=== PATIENT | female | born 1990 | race Two or more races ===

== ENCOUNTER 2023-12-18 00:18 | Inpatient (IN) | payer OTHER ==
[2023-12-18] MEDS: diazePAM 5 MG TABLET PO ONE ×2 (01:42→05:00)
[2023-12-18] MEDS: ONDANSETRON *ODT* 4 MG TABLET SL ONE (01:42)
[2023-12-18] MEDS ORDERED: ONDANSETRON 4 MG/2 ML VIAL ONE ×2 (03:19→07:58)
[2023-12-18] MEDS: morphine CARPU-JECT 2 MG/1 ML DISP.SYRIN IVPUSH ONE ×2 (03:25→05:19)
[2023-12-18] MEDS: LACTATED RINGERS SOLUTION 1000 ML INFUS.BAG IV ONE (03:25)
[2023-12-18] MEDS: ONDANSETRON 4 MG/2 ML VIAL IVPUSH ONE (03:25)
[2023-12-18 04:01] LABS: BASO % 1.1 % (0-2.0); HEMATOCRIT 38.6 % (32.4-45.2); HEMOGLOBIN 13.2 GM/dL (10.7-15.3); LYMPH % 34.4 % (8-40); MCH 29.8 pg (25.7-33.7); MCHC 34.3 g/dl (32.0-36.0); MEAN CELL VOLUME 86.9 fl (80-96); MEAN PLT VOLUME 9.5 fl (7.5-11.1); MONO % 5.5 % (3.8-10.2); PLATELET COUNT 363 10^3/uL (134-434); RBC 4.45 M/mm3 (3.60-5.2); WHITE BLOOD COUNT 5.1 K/mm3 (4.0-10.0)
[2023-12-18 04:19] LABS: POTASSIUM 3.4 mmol/L (3.5-5.1)
[2023-12-18 04:21] LABS: ALBUMIN 3.7 g/dl (3.4-5.0); BLOOD UREA NITROGEN 4.5 mg/dL (7-18); CALCIUM 8.5 mg/dL (8.5-10.1)
[2023-12-18 04:24] LABS: CREATININE 0.7 mg/dL (0.55-1.3)
[2023-12-18 04:26] LABS: BILIRUBIN,TOTAL 0.8 mg/dL (0.2-1); TOT PROT 7.4 g/dl (6.4-8.2)
[2023-12-18] MEDS ORDERED: diazePAM CARPU-JECT 10 MG/2 ML DISP.SYRIN ONE (04:36)
[2023-12-18] MEDS: diazePAM CARPU-JECT 10 MG/2 ML DISP.SYRIN IVPUSH ONE (05:19)
[2023-12-18] MEDS: FOLIC ACID 5 MG/1 ML SQ ONE (06:04)
[2023-12-18] MEDS ORDERED: LORazepam 1 MG TABLET ONE ×2 (06:12→11:38)
[2023-12-18] MEDS: LORazepam 1 MG TABLET PO SCH (06:25)
[2023-12-18] MEDS: LACTATED RINGERS SOLUTION 1,000 ML/1,000 ML INFUS.BAG IV SCH (06:25)
[2023-12-18 06:28] LABS: HEMATOCRIT 37.1 % (32.4-45.2); HEMOGLOBIN 12.1 GM/dL (10.7-15.3); MCH 29.1 pg (25.7-33.7); MCHC 32.7 g/dl (32.0-36.0); MEAN PLT VOLUME 9.3 fl (7.5-11.1); PLATELET COUNT 321 10^3/uL (134-434); RBC 4.17 M/mm3 (3.60-5.2); RDW 21.1 % (11.6-15.6)
[2023-12-18 06:46] LABS: POTASSIUM 3.5 mmol/L (3.5-5.1)
[2023-12-18 06:49] LABS: CALCIUM 8.3 mg/dL (8.5-10.1)
[2023-12-18 06:50] LABS: ALBUMIN 3.4 g/dl (3.4-5.0); BLOOD UREA NITROGEN 4.3 mg/dL (7-18); MAGNESIUM 1.4 mg/dL (1.8-2.4)
[2023-12-18 06:52] LABS: PHOSPHOROUS 4.4 mg/dL (2.5-4.9)
[2023-12-18 06:53] LABS: CREATININE 0.7 mg/dL (0.55-1.3)
[2023-12-18 06:54] LABS: BILIRUBIN,TOTAL 0.8 mg/dL (0.2-1); TOT PROT 6.8 g/dl (6.4-8.2)
[2023-12-18 06:55] LABS: INR 1.32 (0.83-1.09); PROTHROMBIN TIME (PATIENT) 15.3 SEC (9.7-13.0)
[2023-12-18 07:14] LABS: ANISOCYTOSIS 3+; MACROCYTOSIS 0; ROULEAU 1+
[2023-12-18] MEDS: ONDANSETRON 4 MG/2 ML VIAL IVPUSH PRN (08:07)
[2023-12-18 08:08] LABS: URINE AMPHETAMINES NEGATIVE (NEGATIVE)
[2023-12-18 08:09] LABS: COCAINE, UR NEGATIVE (NEGATIVE); PHENCYCLIDINE,URINE NEGATIVE (NEGATIVE); URINE BARBITURATES NEGATIVE (NEGATIVE)
[2023-12-18 08:10] LABS: METHADONE, UR NEGATIVE (NEGATIVE)
[2023-12-18 08:13] LABS: OPIATES, URI POSITIVE (NEGATIVE); URINE BENZODIAZEPINES POSITIVE (NEGATIVE)
[2023-12-18] MEDS ORDERED: THIAMINE HCL 100 MG TABLET (FP) PO SCH ×2 (10:00→22:00)
[2023-12-18] MEDS: FOLIC ACID 1 MG TABLET (FP) PO SCH (11:34)
[2023-12-18] MEDS: FLUoxetine HCL 20 MG/5 ML 120 BOTTLE PO SCH (11:34)
[2023-12-18] MEDS: levETIRAcetam 500 MG TABLET (FP) PO SCH (11:34)
[2023-12-18] MEDS: ENOXAPARIN NA (PORCINE) 40 MG/0.4 ML DISP.SYRIN SQ SCH (11:34)
[2023-12-18] MEDS: THIAMINE HCL 200 MG/2 ML VIAL IVPB SCH (11:35)
[2023-12-18 11:45] LABS: SYPHILIS W/ RPR CONF NON-REACTIVE (NONREACTIVE)
[2023-12-18 12:13] LABS: HIV INTERPRETATION NEGATIVE (NEGATIVE)
[2023-12-18] MEDS: FLUoxetine HCL 10 MG CAPSULE PO SCH (12:48)
[2023-12-18] MEDS: GABAPENTIN 300 MG CAPSULE PO SCH (13:42)
[2023-12-18] MEDS ORDERED: IBUPROFEN 600 MG TABLET (FP) PO PRN (17:57)
[2023-12-18] MEDS ORDERED: IBUPROFEN 400 MG TABLET (FP) PO PRN (17:57)
[2023-12-18] MEDS ORDERED: guaiFENesin 600 MG TABLET.ER (FP) PO PRN (17:57)
[2023-12-18] MEDS ORDERED: MAG HYDROX/AL HYDROX/SIMETH 30 ML UNIT-DOSE CUP PO PRN (17:57)
[2023-12-18] MEDS ORDERED: BENZOCAINE/MENTHOL (CHLORASEPTIC ) LOZENGE MM PRN (17:57)
[2023-12-18] MEDS ORDERED: BENZONATATE 200 MG CAPSULE PO PRN (17:57)
[2023-12-18] MEDS ORDERED: LOPERAMIDE HCL 2 MG CAPSULE PO PRN (17:57)
[2023-12-18] MEDS ORDERED: ACETAMINOPHEN 325 MG TABLET (FP) PO PRN (17:57)
[2023-12-18] MEDS ORDERED: MAGNESIUM HYDROX 2400MG/30ML ORAL SUSPENSION 30 ML CUP PO PRN (17:57)
[2023-12-18] MEDS ORDERED: hydrOXYzine PAMOATE 25 MG CAPSULE (FP) PO PRN (17:57)
[2023-12-18] MEDS ORDERED: METHOCARBAMOL 500 MG TABLET PO PRN (17:57)
[2023-12-18] MEDS ORDERED: BISMUTH SUBSALICYLATE 524 MG/30 ML PO PRN (17:57)
[2023-12-18] MEDS ORDERED: POLYETHYLENE GLYCOL (HEALTHYLAX) 3350 17 GM PACKET PO PRN (17:57)
[2023-12-18] MEDS ORDERED: DICYCLOMINE HCL 10 MG CAPSULE PO PRN (17:57)
[2023-12-18] MEDS: LORazepam 1 MG TABLET PO PRN (18:25)
[2023-12-18] MEDS ORDERED: MELATONIN 5 MG TABLETS PO SCH (22:00)
[2023-12-19] MEDS: LORazepam 1 MG TABLET PO SCH (06:14)
[2023-12-19 09:18] LABS: HEMATOCRIT 33.9 % (32.4-45.2); HEMOGLOBIN 11.4 GM/dL (10.7-15.3); MCH 29.6 pg (25.7-33.7); MCHC 33.8 g/dl (32.0-36.0); MEAN CELL VOLUME 87.8 fl (80-96); MEAN PLT VOLUME 9.3 fl (7.5-11.1); PLATELET COUNT 228 10^3/uL (134-434); RBC 3.86 M/mm3 (3.60-5.2); RDW 20.9 % (11.6-15.6); WHITE BLOOD COUNT 4.5 K/mm3 (4.0-10.0)
[2023-12-19 09:49] LABS: POTASSIUM 3.1 mmol/L (3.5-5.1)
[2023-12-19 09:57] LABS: ANISOCYTOSIS 0; HELMET CELLS 0; HOWELL-JOLLY BODIES 0; MACROCYTOSIS 0; OVALOCYTE 0; ROULEAU 0; SICKELED CELLS 0; TARGET CELLS 0; TEAR DROP CELLS 0; TOXIC GRANULATION 0
[2023-12-19] MEDS ORDERED: PRENATAL VITAMINS W/ FOLIC ACID TABLET (FP) PO SCH (10:00)
[2023-12-19 10:04] LABS: CALCIUM 7.8 mg/dL (8.5-10.1)
[2023-12-19 10:05] LABS: BLOOD UREA NITROGEN 3.7 mg/dL (7-18)
[2023-12-19 10:09] LABS: CREATININE 0.8 mg/dL (0.55-1.3)
[2023-12-19 10:10] LABS: BILIRUBIN,TOTAL 2.4 mg/dL (0.2-1)
[2023-12-19 18:18] VITALS: BMI 26.9
[2023-12-19 21:57] VITALS: RESP 18
[2023-12-20] MEDS ORDERED: LORazepam 0.5 MG TABLET PO PRN
[2023-12-20] MEDS: LORazepam 0.5 MG TABLET PO SCH (06:00)
[2023-12-20 16:01] VITALS: BP 127/98; PULSE 109; TEMP 98.4
[2023-12-21] MEDS ORDERED: LORazepam 0.5 MG TABLET PO ONE (05:00)
== END 2023-12-20 15:11 | disposition home or self-care (01) | DRG 280 ==
LOC: JER 00:18 → JERBED 05:15 → J7W 11:50 → OBSVTOIN 20:47
PROVIDERS: ADMIT Internal Medicine
DX: K70.10 Alcoholic hepatitis without ascites (principal); F41.9 Anxiety disorder, unspecified; F32.A Depression, unspecified; F43.10 Post-traumatic stress disorder, unspecified; F10.230 Alcohol dependence with withdrawal, uncomplicated; G40.909 Epilepsy, unspecified, not intractable, without status epilepticus; H57.02 Anisocoria
CPT/HCPCS: 36415; 70496-TC; 71045-TC-FY; 76705-TC; 80053; 80307; 83690; 83735; 84100; 84703; 85025; 85027; 85610; 86709; 86780; 86803; 87389; 87516; 93005; 93010; 99285-25; G0378; Q0162; Q9967

== ENCOUNTER 2024-01-31 03:51 | Inpatient (IN) | payer OTHER ==
[2024-01-31] MEDS ORDERED: MAG HYDROX/AL HYDROX/SIMETH 30 ML UNIT-DOSE CUP ONE (04:43)
[2024-01-31] MEDS ORDERED: ONDANSETRON 4 MG/2 ML VIAL ONE (04:43)
[2024-01-31 04:50] LABS: EOS % 0.1 % (0-4.5); HEMATOCRIT 44.8 % (32.4-45.2); HEMOGLOBIN 15.2 GM/dL (10.7-15.3); LYMPH % 43.3 % (8-40); MCH 30.1 pg (25.7-33.7); MCHC 33.9 g/dl (32.0-36.0); MEAN CELL VOLUME 88.7 fl (80-96); MEAN PLT VOLUME 9.7 fl (7.5-11.1); MONO % 2.4 % (3.8-10.2); NEUT % 53.2 % (42.8-82.8); PLATELET COUNT 284 10^3/uL (134-434); RBC 5.05 M/mm3 (3.60-5.2); RDW 19.3 % (11.6-15.6); WHITE BLOOD COUNT 5.8 K/mm3 (4.0-10.0)
[2024-01-31 05:04] LABS: INR 1.22 (0.83-1.09); PROTHROMBIN TIME (PATIENT) 14.1 SEC (9.7-13.0)
[2024-01-31 05:06] LABS: ACTIVATED PTT 29.6 SECONDS (25.2-36.5)
[2024-01-31] MEDS: MAG HYDROX/AL HYDROX/SIMETH 30 ML UNIT-DOSE CUP PO ONE (05:06)
[2024-01-31] MEDS: LACTATED RINGERS SOLUTION 1000 ML INFUS.BAG IV ONE (05:06)
[2024-01-31] MEDS: ONDANSETRON 4 MG/2 ML VIAL IVPUSH ONE (05:06)
[2024-01-31 05:07] LABS: POTASSIUM 3.1 mmol/L (3.5-5.1)
[2024-01-31 05:09] LABS: CALCIUM 9.1 mg/dL (8.5-10.1)
[2024-01-31 05:10] LABS: ALBUMIN 3.9 g/dl (3.4-5.0); BLOOD UREA NITROGEN 4.8 mg/dL (7-18); MAGNESIUM 1.5 mg/dL (1.8-2.4)
[2024-01-31 05:12] LABS: CREATININE 0.8 mg/dL (0.55-1.3)
[2024-01-31 05:14] LABS: TOT PROT 8.4 g/dl (6.4-8.2)
[2024-01-31] MEDS ORDERED: MAGNESIUM 1GM/D5W - 1 GM/100 ML IVPB IVPB ONE (05:19)
[2024-01-31] MEDS: MAGNESIUM 1GM/D5W - 1 GM/100 ML IVPB IVPB ONE (05:23)
[2024-01-31] MEDS: KCL 10 MEQ IVPB 10 MEQ/100 ML INFUS.BAG IVPB SCH (05:43)
[2024-01-31] MEDS ORDERED: ACETAMINOPHEN INJECTION 100 ML IVPB ONE (07:58)
[2024-01-31] MEDS: ACETAMINOPHEN 1000 MG/100 ML BAG IVPB ONE (08:02)
[2024-01-31] MEDS ORDERED: KETOROLAC TROMETHAMINE 10 MG TABLET PO ONE (10:58)
[2024-01-31] MEDS: KETOROLAC TROMETHAMINE 10 MG TABLET PO ONE (11:06)
[2024-01-31 11:07] LABS: PHOSPHOROUS 3.8 mg/dL (2.5-4.9)
[2024-01-31] MEDS ORDERED: ONDANSETRON 4 MG/2 ML VIAL IVPUSH PRN (11:30)
[2024-01-31] MEDS ORDERED: MAG HYDROX/AL HYDROX/SIMETH 30 ML UNIT-DOSE CUP PO PRN (11:38)
[2024-01-31] MEDS ORDERED: diazePAM CARPU-JECT 10 MG/2 ML DISP.SYRIN IVPUSH PRN (12:30)
[2024-01-31] MEDS ORDERED: diazePAM 2 MG TABLET PO PRN (12:30)
[2024-01-31] MEDS ORDERED: POTASSIUM CHLORIDE TABS 20 MEQ TABLET.ER (FP) PO ONE (13:19)
[2024-01-31] MEDS ORDERED: FAMOTIDINE 20 MG TABLET ONE (13:19)
[2024-01-31] MEDS ORDERED: diazePAM 5 MG TABLET ONE (13:20)
[2024-01-31] MEDS: FAMOTIDINE 20 MG TABLET PO SCH (13:39)
[2024-01-31] MEDS: FOLIC ACID 1 MG TABLET (FP) PO SCH (13:39)
[2024-01-31] MEDS: diazePAM 5 MG TABLET PO SCH (13:40)
[2024-01-31] MEDS ORDERED: POTASSIUM CHLORIDE ORAL LIQUID 20 MEQ/15 ML ONE (13:55)
[2024-01-31] MEDS ORDERED: levETIRAcetam 500 MG TABLET (FP) PO ONE (13:55)
[2024-01-31] MEDS ORDERED: ENOXAPARIN NA (PORCINE) 40 MG/0.4 ML DISP.SYRIN SQ ONE (13:56)
[2024-01-31] MEDS: POTASSIUM CHLORIDE TABS 20 MEQ TABLET.ER (FP) PO ONE (14:11)
[2024-01-31] MEDS: ENOXAPARIN NA (PORCINE) 40 MG/0.4 ML DISP.SYRIN SQ SCH (14:11)
[2024-01-31] MEDS: THIAMINE HCL 200 MG/2 ML VIAL IVPB SCH (14:11)
[2024-01-31] MEDS: levETIRAcetam 500 MG TABLET (FP) PO SCH (14:11)
[2024-01-31] MEDS: GABAPENTIN 300 MG CAPSULE PO SCH (14:11)
[2024-01-31] MEDS: LACTATED RINGERS SOLUTION 1,000 ML/1,000 ML INFUS.BAG IV SCH (15:07)
[2024-01-31] MEDS ORDERED: LORazepam 1 MG TABLET PO SCH (18:00)
[2024-01-31 18:22] VITALS: RESP 18
[2024-01-31 20:54] VITALS: BMI 26.6
[2024-02-01 09:15] LABS: HEMATOCRIT 33.6 % (32.4-45.2); HEMOGLOBIN 11.2 GM/dL (10.7-15.3); MCHC 33.2 g/dl (32.0-36.0); MEAN CELL VOLUME 90.3 fl (80-96); MEAN PLT VOLUME 10.1 fl (7.5-11.1); PLATELET COUNT 141 10^3/uL (134-434); RBC 3.72 M/mm3 (3.60-5.2); RDW 18.6 % (11.6-15.6); WHITE BLOOD COUNT 5.5 K/mm3 (4.0-10.0)
[2024-02-01 09:18] LABS: INR 1.23 (0.83-1.09); PROTHROMBIN TIME (PATIENT) 14.2 SEC (9.7-13.0)
[2024-02-01] MEDS: NYSTATIN 500,000 UNITS/5 ML SUSPENSION PO ONE (09:27)
[2024-02-01 09:49] LABS: CHLORIDE 96 mmol/L (98-107); POTASSIUM 3.4 mmol/L (3.5-5.1); SODIUM 136 mmol/L (136-145)
[2024-02-01 10:06] LABS: IRON SERUM 155 ug/dL (50-175); TOTAL IRON BINDING CAPACITY 163 ug/dL (250-450)
[2024-02-01 10:08] LABS: TOT PROT 6.4 g/dl (6.4-8.2)
[2024-02-01 10:20] LABS: CALCIUM 8.9 mg/dL (8.5-10.1)
[2024-02-01 10:21] LABS: ANION GAP 12 mmol/L (4-13); CO2 27 mmol/L (21-32); GLUCOSE,RANDOM 111 mg/dL (74-106)
[2024-02-01 10:23] LABS: SGPT/ALT 219 U/L (13-61)
[2024-02-01 10:24] LABS: CREATININE 0.7 mg/dL (0.55-1.3); PHOSPHOROUS 2.2 mg/dL (2.5-4.9); SGOT/AST 581 U/L (15-37)
[2024-02-01] MEDS: POTASSIUM CHLORIDE TABS 20 MEQ TABLET.ER (FP) PO ONE (10:26)
[2024-02-01 10:33] LABS: ALBUMIN 3.1 g/dl (3.4-5.0); ALK PHOS 313 U/L (45-117); BILIRUBIN,TOTAL 3.2 mg/dL (0.2-1); BLOOD UREA NITROGEN 2.6 mg/dL (7-18)
[2024-02-01] MEDS: PANTOPRAZOLE SODIUM 40 MG VIAL IVPUSH ONE (14:12)
[2024-02-01] MEDS: KETOROLAC TROMETHAMINE 15 MG/ML VIAL IVPUSH ONE (14:13)
[2024-02-01 14:15] LABS: BILIRUBIN,DIRECT 0.8 mg/dL (0.0-0.2)
[2024-02-01] MEDS: LIDOCAINE 4% PATCH TP SCH (15:27)
[2024-02-01] MEDS: LIDOCAINE PATCH REMOVAL MC SCH (21:32)
[2024-02-02 09:56] VITALS: BP 126/88; PULSE 96; TEMP 98.1
[2024-02-02] MEDS: PANTOPRAZOLE 40 MG TABLET PO SCH (09:59)
[2024-02-02 10:03] LABS: BASO % 0.3 % (0-2.0); EOS % 1.3 % (0-4.5); HEMATOCRIT 33.2 % (32.4-45.2); HEMOGLOBIN 10.9 GM/dL (10.7-15.3); MCHC 32.9 g/dl (32.0-36.0); MEAN CELL VOLUME 91.1 fl (80-96); MEAN PLT VOLUME 10.3 fl (7.5-11.1); MONO % 3.5 % (3.8-10.2); NEUT % 55.9 % (42.8-82.8); PLATELET COUNT 114 10^3/uL (134-434); RBC 3.64 M/mm3 (3.60-5.2); RDW 17.9 % (11.6-15.6); WHITE BLOOD COUNT 6.1 K/mm3 (4.0-10.0)
[2024-02-02 10:42] LABS: CHLORIDE 102 mmol/L (98-107); POTASSIUM 3.7 mmol/L (3.5-5.1); SODIUM 137 mmol/L (136-145)
[2024-02-02 10:46] LABS: CALCIUM 8.4 mg/dL (8.5-10.1)
[2024-02-02 10:47] LABS: ANION GAP 10 mmol/L (4-13); CO2 25 mmol/L (21-32); GLUCOSE,RANDOM 188 mg/dL (74-106)
[2024-02-02 10:49] LABS: IRON SERUM 94 ug/dL (50-175)
[2024-02-02 10:50] LABS: CREATININE 0.8 mg/dL (0.55-1.3); SGOT/AST 398 U/L (15-37); SGPT/ALT 173 U/L (13-61); TOTAL IRON BINDING CAPACITY 162 ug/dL (250-450)
[2024-02-02 10:51] LABS: BILIRUBIN,TOTAL 1.8 mg/dL (0.2-1)
[2024-02-02 10:52] LABS: ALK PHOS 300 U/L (45-117)
[2024-02-02 10:56] LABS: BLOOD UREA NITROGEN 2.7 mg/dL (7-18)
== END 2024-02-02 13:50 | disposition home or self-care (01) | DRG 775 ==
LOC: JER 03:51 → JERBED 09:51 → J5S 20:27
PROVIDERS: ADMIT Internal Medicine; ATTEND Nurse Practitioner
PROC: HZ2ZZZZ Detoxification Services for Substance Abuse Treatment (ICD-10-PCS; principal; 2024-01-31)
DX: F10.139 Alcohol abuse with withdrawal, unspecified (principal); E83.42 Hypomagnesemia; E83.39 Other disorders of phosphorus metabolism; K70.10 Alcoholic hepatitis without ascites; K76.0 Fatty (change of) liver, not elsewhere classified; E87.6 Hypokalemia; K29.20 Alcoholic gastritis without bleeding; K70.9 Alcoholic liver disease, unspecified
CPT/HCPCS: 36415; 71045-TC-FY; 74177-TC; 74181-TC; 76705-TC; 80053; 80307; 82248; 82728; 83516; 83540; 83550; 83690; 83735; 84100; 84466; 84484; 84703; 85025; 85027; 85610; 85730; 86038; 86704; 86706; 86709; 86803; 86850; 86900; 86901; 87340; 87517; 93005; 93010; 99285-25; J0131; Q9967